=== PATIENT | female | born 1980 | race Caucasian/White ===

== ENCOUNTER 2017-01-31 10:56 | Emergency (ER) | payer OTHER ==
[~2017-01-31] VITALS: Ht 165.1 cm; Wt 79.5 kg
[~2017-01-31 10:56] MED LIST: ACYCLOVIR400 MG PO; DAILY VALUE1 EACH PO; NOHOMEMEDS; NORCO 5/3251 TABLET PO; ZOFRAN4 MG PO
[2017-01-31 11:33] LABS: HEMATOCRIT 42.2 % (36.0-46.0); MCH 30.8 PG (29.0-34.0); MCHC 33.6 G/DL (30.0-36.0); MCV 91.5 FL (83-99); MEAN PLAT.VOLUME 8.8 uM^3 (9.5-12.4); PLATELET COUNT 262 K/uL (156-360); RBC DIS.WIDTH-CV 11.6 % (11.8-14.6); RBC DIS.WIDTH-SD 39.2 % (39-53); RED BLOOD COUNT 4.61 M/uL (3.80-5.20); WHITE BLOOD COUNT 7.6 K/uL (4.1-10.2)
[2017-01-31 11:39] LABS: CHLORIDE 103 mEq/L (99-109); INTER. NORMALIZED RATIO 1.1; POTASSIUM 3.9 mEq/L (3.7-5.4); PROTHROMBIN TIME 11.7 SEC (10.2-12.9); SODIUM 140 mEq/L (136-147)
[2017-01-31 11:41] LABS: GLUCOSE 99 mg/dL (70-99)
[2017-01-31 11:42] LABS: ANION GAP 11 MEQ/L (2-14); PTT 28.8 SEC (25-37)
[2017-01-31 11:45] LABS: GFR ESTIMATE (CALCULATED) > 59 mL/min/
[2017-01-31 11:46] LABS: UREA NITROGEN (BUN) 9 mg/dL (9-23)
[2017-01-31] MEDS ORDERED: XARELTO15 MG PO (12:59)
[2017-01-31] MEDS ORDERED: XARELTO20 MG PO (13:04)
[2017-01-31 13:35] VITALS: BP 140/80
== END 2017-01-31 14:28 | disposition home or self-care (01) ==
LOC: EME 10:56
PROVIDERS: Emergency Medicine
DX: I82.402 Acute embolism and thrombosis of unspecified deep veins of left lower extremity (principal); Z86.718 Personal history of other venous thrombosis and embolism
CPT/HCPCS: 80048; 85027; 85610; 85730; 99281; 99283